=== PATIENT | female | born 1985 | race Caucasian/White ===

== ENCOUNTER 2018-10-08 22:23 | Emergency (ER) | payer OTHER ==
[2018-10-08 22:48] VITALS: TEMP 97.7; BMI 41.3
[2018-10-08 23:31] LABS: ALBUMIN 4.1 g/dL (3.0-4.8); ALT/SGPT 11 U/L (7-56); AST/SGOT 28 U/L (14-36); BLOOD UREA NITROGEN 21 mg/dL (7-21); CALCIUM 9.7 mg/dL (8.4-10.5); GFR NON-AFRICAN AMERICAN > 60
[2018-10-08 23:46] LABS: INR 1.14; PARTIAL THROMBOPLASTIN TIME 32.8 Seconds (26.9-38.3); PROTHROMBIN TIME 12.6 SECONDS (9.4-12.5)
[2018-10-09 00:11] LABS: URINE BILIRUBIN NEGATIVE (NEGATIVE); URINE BLOOD LARGE (NEGATIVE); URINE GLUCOSE (UA) NEGATIVE (NEGATIVE); URINE LEUKOCYTE ESTERASE MODERATE Leu/uL (NEGATIVE); URINE PROTEIN 30 mg/dL (<30 mg/dL); URINE UROBILINOGEN 0.2 E.U./dL (<1 E.U./dL)
[2018-10-09 00:14] LABS: URINE APPEARANCE CLEAR (CLEAR); URINE COLOR YELLOW (YELLOW)
[2018-10-09 00:37] LABS: BASO # 0.02 K/mm3 (0.0-2.0); BASO % 0.3 % (0.0-3.0); EOS # 0.1 (0.0-0.7); EOS % 1.8 % (1.5-5.0); HEMOGLOBIN 10.9 g/dL (12.0-16.0); LYMPH # 2.2 (1.2-3.4); LYMPH % 29.7 % (22.0-35.0); MEAN CELL VOLUME 72.4 fl (80.0-105.0); MEAN CORPUSCULAR HEMOGLOBIN 21.5 pg (25.0-35.0); MEAN CORPUSCULAR HGB CONC 29.6 g/dl (31.0-37.0); MONO # 0.6 (0.1-0.6); MONO % 8.2 % (1.0-6.0); PLATELET COUNT 303 10^3/uL (120.0-450.0); RBC 5.08 10^6/uL (3.5-6.1); RED CELL DISTRIBUTION WIDTH 20.6 % (11.5-14.5); WHITE BLOOD COUNT 7.3 10^3/uL (4.5-11.0)
[2018-10-09 00:48] LABS: URINE RBC 25 - 30 /hpf (0-2)
[2018-10-09 00:49] LABS: URINE BACTERIA MANY /hpf; URINE WBC 20 - 25 /hpf (0-6)
--- NOTE | 2018-10-09 02:52 | ED PDOC ---
Arrival/HPI <Doug Stephens - Last Filed: 10/09/18 04:08> - History of Present Illness Narrative History of Present Illness (Text): 32 y/o female with no significant PMH presents to the ED c/o incision site infection x 2 days. Incision has become indurated, warm, red, and swollen with small amount of yellow drainage today. Pt recently delivered a child by C- section 2 weeks ago at [facility] with OBGYN Dr. Pilo Lewis without complication. Incision was closed with absorbable sutures and pt was advised to return in 6 weeks for a check up. Pt did not call her OB prior to coming here. D enies fever, chills, nausea, vomiting, dizziness, headache, chest pain, SOB, or any other associated symptoms. <Arcelia Levy - Last Filed: 10/10/18 20:50> - General Chief Complaint: Abnormal Skin Integrity Time Seen by Provider: 10/08/18 22:47 Past Medical History - Pulmonary Hx Respiratory Disorders: No - Neurological Hx Neurological Disorder: No - Psychiatric Hx Substance Use: No - Surgical History Hx Section: Yes (x 3) <Arcelia Levy - Last Filed: 10/10/18 20:50> Family/Social History - Physician Review Nursing Documentation Reviewed: Yes Family/Social History: No Known Family HX Smoking Status: Never Smoked Hx Alcohol Use: No Hx Substance Use: No <Arcelia Levy - Last Filed: 10/10/18 20:50> Allergies/Home Meds <Doug Stephens - Last Filed: 10/09/18 04:08> <Arcelia Levy - Last Filed: 10/10/18 20:50> Allergies/Adverse Reactions: Allergies No Known Allergies Allergy (Verified 10/08/18 22:50) Review of Systems - Review of Systems Constitutional: Normal. absent: Fatigue, Fevers Eyes: Normal. absent: Vision Changes ENT: Normal Respiratory: Normal. absent: SOB, Cough Cardiovascular: Normal. absent: Chest Pain, Palpitations Gastrointestinal: Abdominal Pain. absent: Nausea, Vomiting Genitourinary Female: Normal. absent: Dysuria, Frequency, Vaginal Bleeding, Vaginal Discharge Musculoskeletal: Normal. absent: Back Pain Skin: Abscess, Cellulitis. absent: Rash Neurological: Normal. absent: Headache, Dizziness Endocrine: Normal Hemo/Lymphatic: Normal Psychiatric: Normal <Arcelia Levy - Last Filed: 10/10/18 20:50> Physical Exam Vital Signs Temp Pulse Resp BP Pulse Ox 10/08/18 22:47 97.7 F 73 18 115/72 98 <Doug Stephens - Last Filed: 10/09/18 04:08> Vital Signs Reviewed: Yes Vital Signs Temp Pulse Resp BP Pulse Ox 10/08/18 22:47 97.7 F 73 18 115/72 98 Temperature: Afebrile Blood Pressure: Normal Pulse: Regular Respiratory Rate: Normal Appearance: Positive for: Well-Appearing, Non-Toxic, Comfortable Pain Distress: None Mental Status: Positive for: Alert and Oriented X 3 - Systems Exam Head: Present: Atraumatic, Normocephalic Pupils: Present: PERRL Extroacular Muscles: Present: EOMI Conjunctiva: Present: Normal Mouth: Present: Moist Mucous Membranes Neck: Present: Normal Range of Motion Respiratory/Chest: Present: Clear to Auscultation, Good Air Exchange. No: Respiratory Distress, Accessory Muscle Use Cardiovascular: Present: Regular Rate and Rhythm, Normal S1, S2. No: Murmurs Abdomen: Present: Tenderness (over incision), Normal Bowel Sounds, Other (10cm incision to lower abdomen s/p . Surrounding erythema and induration, with small amount of purulent drainage from left side. Fluctuance to left lateral incision). No: Distention, Peritoneal Signs Back: Present: Normal Inspection Upper Extremity: Present: Normal Inspection, Normal ROM, NORMAL PULSES, Neurovascularly Intact, Capillary Refill < 2s. No: Cyanosis, Edema, Temperature Abnormalties Lower Extremity: Present: Normal Inspection, NORMAL PULSES, Normal ROM, Neurovascularly Intact, Capillary Refill < 2 s. No: Edema, Temperature Abnormalties Neurological: Present: GCS=15, CN II-XII Intact, Speech Normal, Motor Func Grossly Intact, Normal Sensory Function, Gait Normal Skin: Present: Warm, Dry, Normal Color. No: Rashes Psychiatric: Present: Alert, Oriented x 3, Normal Insight, Normal Concentration, Normal Affect, Normal Mood <Arcelia Levy - Last Filed: 10/10/18 20:50> Medical Decision Making ED Course and Treatment: 10/09/18 04:08 multiple phone calls have been made to patient's obgyn and no return call back. 10/09/18 04:10 The patient refuses admission and wishes to leave the Emergency Department against my medical advice. Patient was told that admission to the hospital is necessary and a full explanation of the reasons why was given, and understood by patient. The risks of leaving were explained and include worsening of condition, and permanent disability and from an undiagnosed or untreated condition. The patient accepts these risks, and is in my judgement is competent and capable of understanding the clinical situation and my explanation of the risks of leaving. Patient was given the opportunity to ask questions and change mind. The patient was instructed regarding the best care for the present symptoms, and to follow up with Dr. oates as soon as possible, or return to the Emergency Department at any time for continuing care. - Lab Interpretations Lab Results: PT 12.6 SECONDS (9.4-12.5) H 10/08/18 23:12 INR 1.14 10/08/18 23:12 APTT 32.8 Seconds (26.9-38.3) 10/08/18 23:12 Total Bilirubin 0.2 mg/dL (0.2-1.3) 10/08/18 23:12 AST 28 U/L (14-36) 10/08/18 23:12 ALT 11 U/L (7-56) 10/08/18 23:12 Alkaline Phosphatase 75 U/L (38-126) 10/08/18 23:12 Total Protein 8.3 g/dL (5.8-8.3) 10/08/18 23:12 Albumin 4.1 g/dL (3.0-4.8) 10/08/18 23:12 Globulin 4.2 gm/dL 10/08/18 23:12 Albumin/Globulin Ratio 1.0 (1.1-1.8) L 10/08/18 23:12 Urine Color Yellow (YELLOW) 10/08/18 23:25 Urine Appearance Clear (CLEAR) 10/08/18 23:25 Urine pH 6.0 (4.7-8.0) 10/08/18 23:25 Ur Specific [place] 1.025 (1.005-1.035) 10/08/18 23:25 Urine Protein 30 mg/dL (<30 mg/dL) H 10/08/18 23:25 Urine Glucose (UA) Negative mg/dL (NEGATIVE) 10/08/18 23:25 Urine Ketones Negative mg/dL (NEGATIVE) 10/08/18 23:25 Urine Blood Large (NEGATIVE) H 10/08/18 23:25 Urine Nitrate Negative (NEGATIVE) 10/08/18 23:25 Urine Bilirubin Negative (NEGATIVE) 10/08/18 23:25 Urine Urobilinogen 0.2 E.U./dL (<1 E.U./dL) 10/08/18 23:25 Ur Leukocyte Esterase Moderate Rosita/uL (NEGATIVE) H 10/08/18 23:25 Urine RBC 25 - 30 /hpf (0-2) H 10/08/18 23:25 Urine WBC 20 - 25 /hpf (0-6) H 10/08/18 23:25 Ur Epithelial Cells 3 - 4 /hpf (0-5) 10/08/18 23:25 Urine Bacteria Many /hpf (NONE) 10/08/18 23:25 Urine Other Mucus /hpf 10/08/18 23:25 - RAD Interpretation Radiology Orders: 10/08/18 23:36 ABD & PELVIS W/O PO OR IV CONT [CT] Stat <Doug Stephens - Last Filed: 10/09/18 04:08> ED Course and Treatment: Initial Plan: * CBC, CMP * Coags * CT Abd/Pelvis without contrast Pt seen and examined at bedside by ED attending Angelo who recommends CT without contrast. Bloodwork reviewed, no leukocytosis. CT shows subcutaneous fluid collection 10.7x2.1cm with stranding. Case discussed with OB sonography technologist Dr. Louis, who recommends discharge home with keflex. Will attempt to call patient's OB, Dr. Pilo Lewis. Cell phone number provided by patient. Multiple phone calls made to OB Dr.Chavez Oates by ED attending Dr. Stephens without response. Pt is asking to leave AMA. Dr. Stephens recommends prescriptions for keflex and bactrim. 0400 The patient is choosing to leave against medical advice. I have personally explained to the patient that choosing to do so may result in permanent bodily harm, disability, or . I have discussed at great length that without further evaluation and monitoring there may be unforeseen circumstances and/or deterioration causing permanent bodily harm or as a result of their choice. The patient is alert, oriented, and shows the mental capacity to make clear decisions regarding the patients health care at this time. The patient continues to wish to leave against medical advice. In light of the patients decision to leave against medical advice, follow-up has been arranged and the patient is aware of the importance to following up as instructed. The patient has been advised that they should return to the emergency room immediately if they change their mind at any time, or if their co ndition begins to change or worsen in any way. - Lab Interpretations Lab Results: PT 12.6 SECONDS (9.4-12.5) H 10/08/18 23:12 INR 1.14 10/08/18 23:12 APTT 32.8 Seconds (26.9-38.3) 10/08/18 23:12 Total Bilirubin 0.2 mg/dL (0.2-1.3) 10/08/18 23:12 AST 28 U/L (14-36) 10/08/18 23:12 ALT 11 U/L (7-56) 10/08/18 23:12 Alkaline Phosphatase 75 U/L (38-126) 10/08/18 23:12 Total Protein 8.3 g/dL (5.8-8.3) 10/08/18 23:12 Albumin 4.1 g/dL (3.0-4.8) 10/08/18 23:12 Globulin 4.2 gm/dL 10/08/18 23:12 Albumin/Globulin Ratio 1.0 (1.1-1.8) L 10/08/18 23:12 Urine Color Yellow (YELLOW) 10/08/18 23:25 Urine Appearance Clear (CLEAR) 10/08/18 23:25 Urine pH 6.0 (4.7-8.0) 10/08/18 23:25 Ur Specific [place] 1.025 (1.005-1.035) 10/08/18 23:25 Urine Protein 30 mg/dL (<30 mg/dL) H 10/08/18 23:25 Urine Glucose (UA) Negative mg/dL (NEGATIVE) 10/08/18 23:25 Urine Ketones Negative mg/dL (NEGATIVE) 10/08/18 23:25 Urine Blood Large (NEGATIVE) H 10/08/18 23:25 Urine Nitrate Negative (NEGATIVE) 10/08/18 23:25 Urine Bilirubin Negative (NEGATIVE) 10/08/18 23:25 Urine Urobilinogen 0.2 E.U./dL (<1 E.U./dL) 10/08/18 23:25 Ur Leukocyte Esterase Moderate Rosita/uL (NEGATIVE) H 10/08/18 23:25 Urine RBC 25 - 30 /hpf (0-2) H 10/08/18 23:25 Urine WBC 20 - 25 /hpf (0-6) H 10/08/18 23:25 Ur Epithelial Cells 3 - 4 /hpf (0-5) 10/08/18 23:25 Urine Bacteria Many /hpf (NONE) 10/08/18 23:25 Urine Other Mucus /hpf 10/08/18 23:25 10/08/18 23:12 10/08/18 23:12 Lab Results 10/08/18 23:25: Urine Color Yellow, Urine Appearance Clear, Urine pH 6.0, Ur Specific [place] 1.025, Urine Protein 30 H, Urine Glucose (UA) Negative, Urine Ketones Negative, Urine Blood Large H, Urine Nitrate Negative, Urine Bilirubin Negative, Urine Urobilinogen 0.2, Ur Leukocyte Esterase Moderate H, Urine RBC 25 - 30 H, Urine WBC 20 - 25 H, Ur Epithelial Cells 3 - 4, Urine Bacteria Many, Urine Other Mucus 10/08/18 23:12: Sodium 140, Potassium 3.8, Chloride 102, Carbon Dioxide 30, Anion Gap 12, BUN 21, Creatinine 0.7, Est GFR ( Amer) > 60, Est GFR (Non- Af Amer) > 60, Random Glucose 87, Calcium 9.7, Total Bilirubin 0.2, AST 28, ALT 11, Alkaline Phosphatase 75, Total Protein 8.3, Albumin 4.1, Globulin 4.2, Albumin/Globulin Ratio 1.0 L 10/08/18 23:12: PT 12.6 H, INR 1.14, APTT 32.8 10/08/18 23:12: WBC 7.3, RBC 5.08, Hgb 10.9 L, Hct 36.8, MCV 72.4 L, MCH 21.5 L, MCHC 29.6 L, RDW 20.6 H, Plt Count 303, Neut % (Auto) 60.0, Lymph % (Auto) 29.7, [place] % (Auto) 8.2 H, Eos % (Auto) 1.8, Baso % (Auto) 0.3, Lymph # (Auto) 2.2, [place] # (Auto) 0.6, Eos # (Auto) 0.1, Baso # (Auto) 0.02, Absolute Neuts (auto) 4.37 I have reviewed the lab results: Yes - RAD Interpretation Radiology Orders: 10/08/18 23:36 ABD & PELVIS W/O PO OR IV CONT [CT] Stat <Arcelia Levy - Last Filed: 10/10/18 20:50> Disposition/Present on Arrival <Doug Stephens - Last Filed: 10/09/18 04:08> - Present on Arrival Any Indicators Present on Arrival: No History of DVT/PE: No History of Uncontrolled Diabetes: No Urinary Catheter: No History of Decub. Ulcer: No History Surgical Site Infection Following: None - Disposition Have Diagnosis and Disposition been Completed?: No Disposition Time: 04:00 <Arcelia Levy - Last Filed: 10/10/18 20:50> - Disposition Diagnosis: Cellulitis, Abscess, Left against medical advice Disposition: AGAINST MEDICAL ADVICE Condition: GUARDED Discharge Instructions (ExitCare): How to Prevent Surgical Site Infections, Surgical Wound (DC), Leaving Against Medical Advice, Cellulitis (ED) Additional Instructions: Keflex every 6 hours for 7 days Bactrim every 12 hours for 7 days Followup with OBGYN TODAY Followup with primary doctor within 2 days Return to ER with any new/worsening symptoms or if you wish to be re-evaluated Prescriptions: Cephalexin [Keflex] 500 mg PO QID 7 Days #28 capsule Sulfamethoxazole/Trimethoprim [Bactrim DS 800 mg-160 mg] 1 tab PO Q12 #14 tab Referrals: Hannah Louis MD [Staff Provider] - Follow up with primary
[2018-10-09 07:24] VITALS: BP 125/89; PULSE 75; RESP 16; O2SAT 100
--- NOTE | 2018-10-09 10:50 | CT ---
Date of service: 10/09/2018 PROCEDURE: CT Abdomen and Pelvis without intravenous contrast HISTORY: Wound infection, status post 2 weeks ago. COMPARISON: None. TECHNIQUE: CT scan of the abdomen and pelvis was performed without administration of intravenous contrast. Oral contrast was not administered. Coronal and sagittal reformatted images were obtained. Radiation dose: Total exam DLP = 1030.84 mGy-cm. This CT exam was performed using one or more of the following dose reduction techniques: Automated exposure control, adjustment of the mA and/or kV according to patient size, and/or use of iterative reconstruction technique. FINDINGS: LOWER THORAX: The visualized lungs are clear. LIVER: Enlarged and measures 24 cm in craniocaudad dimension. No gross lesion or ductal dilatation. GALLBLADDER AND BILE DUCTS: Surgically absent. PANCREAS: Normal in size. No gross lesion or ductal dilatation. SPLEEN: Enlarged and measures 14 cm in craniocaudad dimension. ADRENALS: Normal in size. No discrete nodule. KIDNEYS AND URETERS: Both kidneys are normal in size. No hydronephrosis or nephrolithiasis. VASCULATURE: Normal in caliber. No aortic aneurysm. No aortic atherosclerotic calcification or mural plaque present. BOWEL: Evaluation of the bowel is limited in the absence of oral contrast. The small bowel loops are normal in caliber. The colon is normal in size. No bowel dilatation or wall thickening. No bowel obstruction. APPENDIX: Normal appendix. PERITONEUM: No free fluid. No free air. LYMPH NODES: No enlarged lymph nodes. BLADDER: Well distended and normal in appearance. REPRODUCTIVE: Enlarged anteverted bulky uterus. BONES: No acute fracture. Within normal limits for the patient's age. OTHER FINDINGS: There is an approximately 12.2 x 2.0 x 8.5 cm ill-defined fluid collection in the deep subcutaneous tissues of the pelvis abutting the anterior pelvic wall. There is surrounding inflammatory fat stranding. IMPRESSION: Approximately 12.2 x 2.0 x 8.5 cm ill-defined fluid collection in the deep subcutaneous tissues of the pelvis abutting the anterior pelvic wall with surrounding inflammatory changes most compatible with postoperative fluid collection. Please note the sterility of this collection cannot be determined on the basis of imaging. Clinical follow-up and laboratory correlation is advised. A preliminary report was provided by [employer].
== END 2018-10-09 03:00 | disposition left against medical advice (07) ==
LOC: ED 22:23
DX: L03.311 Cellulitis of abdominal wall (principal); L02.211 Cutaneous abscess of abdominal wall